=== PATIENT | female | born 1945 | race American Indian/Alaskan Native ===

== ENCOUNTER 2020-03-15 07:49 | Day surgery (SDC) | payer MEDICARE ==
[~2020-03-15 07:49] MED LIST: ceFAZolin/Water 2 GM/20 ML 2 GM/20 ML SYRINGE IV NR
[2020-03-15] MEDS ORDERED: SODIUM CHLORIDE 0.9% 1000 ML 1,000 ML ONE (08:37)
[2020-03-15 09:15] LABS: Hematocrit 30.5 % (30.3-42.9); Hemoglobin 10.5 gm/dl (10.1-14.3); Mean Corpuscular HGB Conc 34 % (30-34); Mean Corpuscular Volume 88 fl (79-97); Platelet Count 159 K/mm3 (140-440); Red Blood Count 3.48 M/mm3 (3.65-5.03); Red Cell Distribution Width 13.3 % (13.2-15.2)
[2020-03-15 09:45] LABS: Calcium 8.9 mg/dL (8.4-10.2)
[2020-03-15] MEDS ORDERED: fentaNYL 100 MCG/2 ML INJ IV NR (10:19)
[2020-03-15] MEDS ORDERED: HYDROmorphone 1 MG/1 ML INJ IV PRN (10:20)
[2020-03-15] MEDS ORDERED: ONDANSETRON 4 MG/2 ML INJ IV PRN (10:20)
[2020-03-15] MEDS ORDERED: SODIUM CHLORIDE 0.9% 1000 ML 1,000 ML IV SCH (10:30)
[2020-03-15] MEDS ORDERED: BUPIVACAINE-EPINEPHRINE/PF 0.5%-1:200,000 (30 ML) VIAL INFILTRATI ONE (10:33)
[2020-03-15] MEDS ORDERED: rifAMPin 600 MG VIAL ONE (10:41)
[2020-03-15] MEDS ORDERED: HEPARIN 10,000 UNITS/10 ML VIAL ONE (10:41)
[2020-03-15] MEDS ORDERED: SODIUM CHLORIDE 0.9% 500 ML 500 ML ONE (10:42)
[2020-03-15] MEDS ORDERED: SODIUM CHLORIDE 0.9% 250ML 250 ML ONE (10:42)
[2020-03-15] MEDS ORDERED: BUPIVACAINE/PF (0.5%) 5 MG/1 ML 30 ML VIAL INFILTRATI ONE ×3 (10:42→11:54)
[2020-03-15] MEDS ORDERED: MIDAZOLAM 2 MG/2 ML INJ IV NR (11:00)
--- NOTE | 2020-03-15 11:07 | Anesthesia Day of Surgery ---
Anesthesia Day of Surgery - Day of Surgery Patient Examined: Yes Patient H&P Reviewed: Yes Patient is NPO: Yes
--- NOTE | 2020-03-15 11:10 | Anesthesia Consultation ---
Anesthesia Consult and Med Hx Date of service: 03/15/20 - Airway Anesthetic Teeth Evaluation: Good (many missing), Dentures, Partials (lower), Edentulous (upper) ROM Head & Neck: Adequate Mental/Hyoid Distance: Adequate Mallampati Class: Class II Intubation Access Assessment: Good - Pre-Operative Health Status ASA Pre-Surgery Classification: ASA3 Proposed Anesthetic Plan: General (BLOCK; GA if needed) Nerve Block: SC - Pulmonary Hx Smoking: No Hx Asthma: No COPD: No Hx Pneumonia: No Hx Sleep Apnea: Yes (DX YEARS AGO-SNORES) - Cardiovascular System Hx Hypertension: Yes Hx Heart Attack/AMI: No Hx Cardia Arrhythmia: Yes (Hx AFIB-ablatation) Hx Pacemaker: No Hx Internal Defibrillator: No Hx Heart Murmur: No - Central Nervous System Hx Seizures: No CVA: No Hx Back Pain: Yes (Several back surgeries. Back pain limits activities) Hx Psychiatric Problems: Yes (Anxiety) - Gastrointestinal Hx Ulcer: No Hx Gastroesophageal Reflux Disease: Yes - Endocrine Hx Renal Disease: Yes (HAS ONLY ONE KIDNEY THAT FORMED) Hx End Stage Renal Disease: Yes (Not on dialysis yet. Etiology unknown) Hx Cirrhosis: No Hx Liver Disease: No Hx Non-Insulin Dependent Diabetes: No Hx Thyroid Disease: Yes Hx Hypothyroidism: Yes - Hematic Hx Anemia: Yes Hx Sickle Cell Disease: No - Other Systems Hx Alcohol Use: No Hx Substance Use: No Hx Cancer: No Hx Obesity: Yes
[2020-03-15] MEDS ORDERED: HEPARIN 1,000 UNIT in SODIUM CHLORIDE 0.9% 250ML 250 ML IR ONE (11:54)
[2020-03-15] MEDS ORDERED: SODIUM CHLORIDE 0.9% IRR 1,000 ML BOTTLE IR ONE (11:54)
[2020-03-15] MEDS ORDERED: rifAMPin 600 MG in SODIUM CHLORIDE 0.9% 50 ML IR ONE (12:25)
--- NOTE | 2020-03-15 13:41 | Short Stay Summary ---
Short Stay Documentation Date of service: 03/15/20 Narrative H&P: See H&P - History H&P: obtained from office - Allergies and Medications Current Medications: Allergies iron dextran complex [From Infed] Adverse Reaction (Verified 03/15/20 09:51) Unknown Home Medications Medication Instructions Recorded Confirmed Last Taken Type Gabapentin 600 mg PO TID 01/19/14 03/08/20 Unknown History Levothyroxine [Synthroid] 0.15 mg PO DAILY 01/19/14 03/08/20 Unknown History Oxycodone HCl/Acetaminophen 1 each PO Q4-6H PRN 01/19/14 03/08/20 Unknown History [Percocet 10-325 mg Tablet] B12 Active 5,000 mcg PO DAILY 03/01/20 03/08/20 Unknown History Gaviscon (Nf) 1 tab PO HS 03/01/20 03/08/20 Unknown History Torsemide 100 mg PO DAILY 03/01/20 03/08/20 Unknown History Vitamin D2 50,000 units PO 1XW 03/01/20 03/08/20 Unknown History Active Medications Fentanyl (Sublimaze) 100 mcg IV ONCE NR Stop: 03/15/20 23:00 Hydromorphone HCl (Dilaudid) 0.25 mg IV Q10MIN PRN PRN Reason: Pain, Moderate (4-6) Stop: 03/15/20 23:00 Hydromorphone HCl (Dilaudid) 0.5 mg IV Q10MIN PRN PRN Reason: Pain , Severe (7-10) Stop: 03/15/20 23:00 Cefazolin Sodium (Ancef/Sterile Water 2 Gm/20 Ml) 2 gm in 20 mls @ 80 mls/hr IV PREOP NR; Protocol Stop: 03/15/20 23:59 Sodium Chloride (Nacl 0.9% 1000 Ml) 1,000 mls @ 42 mls/hr IV DIRECT GIA Midazolam HCl (Versed) 2 mg IV PREOP NR Stop: 03/15/20 23:59 Ondansetron HCl (Zofran) 4 mg IV ONCE PRN PRN Reason: Nausea And Vomiting Stop: 03/15/20 23:00 - Brief post op/procedure progress note Date of procedure: 03/15/20 Pre-op diagnosis: End-Stage Renal Disease Post-op diagnosis: same Procedure: Creation of Left Brachial Artery to Axillary Vein Arteriovenous Graft with 6 mm Bovine Artegraft Anesthesia: MAC, regional, local Findings: Brachiocephalic arteriovenous fistula was initially created however there bleeding in the mid bicep requiring ligation of the fistula and creation of an arteriovenous graft. Surgeon: ZOILA MOSELEY Estimated blood loss: 50-100ml Pathology: none Condition: stable - Disposition Condition at discharge: Good Disposition: DC-01 TO HOME OR SELFCARE Short Stay Discharge Plan Activity: other (No heavy lifting with left arm for 2 weeks) Wound: open to air, keep clean and dry, other (Okay to wash the wound with soap and water but do not soak in water.) Follow up with: ZOILA MOSELEY MD [Staff Physician] - 14 Days Prescriptions: HYDROcodone/APAP 7.5-325 [[place] 7.5/325] 1 each PO Q6HR PRN #30 tablet PRN Reason: Pain
[2020-03-15] MEDS: HYDROmorphone 1 MG/1 ML INJ IV PRN ×2 (13:53→14:03)
--- NOTE | 2020-03-15 13:56 | Operative Report ---
Operative Report Operative Report: Date of procedure: 03/15/2020 Pre-operative diagnosis: End-Stage Renal Disease Post-operative diagnosis: Same Procedure(s): 1. Creation of Left Brachial Artery to Axillary Vein AV Graft with 6 mm Bovine Graft Artergraft Surgeon: Reji Agarwal MD Neuroscientist: None Anesthesia: Regional/MAC EBL: Minimal Counts: Correct Complications: None Condition: Stable Findings: Successful Creation of Left Arm AV Graft/Braciocephalic arteriovenous fistula was initially created however there was obvious bleeding in the bicep requiring ligation of the fistula. Specimen: None Indication: The patient is a 74-year-old female with a history of chronic renal insufficiency who is in need of long-term dialysis access. She was given the risk, benefits, and alternative procedures of creation of a arteriovenous access and consented to the procedure. Description of Procedure: A regional block was performed in the preoperative area prior to the patient being transported to the operating room. Once the block was completed the patient was transported to the operating room and adequate sedation was achieve d. Her left arm was then prepped and draped in normal sterile fashion. A transverse incision was then created below the antecubital crease and carried down to the cephalic vein by sharp dissection. The vein was dissected circumferentially, ligating all side branches with 3-0 silk sutures and divided the branches. The vein was then suture-ligated and divided distally, flushed with heparinized saline and clamped with the bulldog clamp. I then dissected out the brachial artery, through the same incision and dissected circumferentially and controlled with Vesseloops. At this point the patient was systemically heparinized with 3000 units of heparin IV and the artery was clamped with DeBakey clamps both proximal and distal to the planned arteriotomy. An arteriotomy was created with an 11 blade and Back scissors and then an end-to-side anastomosis was created between the cephalic vein and brachial artery using a 6-0 Prolene in running fashion. Prior to completing the anastomosis the vein and artery were both backbled and flushed with heparinized saline and then reclamped. The anastomosis was completed and then the clamps were removed allowing flow into the fistula. There was an adequate thrill however upon evaluating the upper arm there was a clear hematoma forming in the bicep indicating that there was extravasation in the upper arm. I felt I would not be able to identify where the hole in the vein was so I decided to ligate the fistula and create an arteriovenous graft. I reclamped the brachial artery and resected the cephalic vein off of the brachial artery. A second incision was created in longitudinal fashion on the medial aspect of the arm just distal to the axillary crease and carried down to the axillary vein using sharp dissection. Axillary vein was dissected out circumferentially and controlled with a vessel loop. I then used a Roselia-Wick tunneler to tunnel from the brachial artery incision to the axillary vein incision and then put an 6 mm bovine through the tunnel. I infused with heparinized saline to ensure that it was not twisted or kinked. I put the brachial artery vessel loops on tension controlling the flow and then created an arteriotomy using an 11 blade and Back scissors. I beveled the graft and created an end-to-side anastomosis using 6-0 Prolene running fashion. I clamped the graft just proximal to the anastomosis and then released the vessel loops restoring flow in the brachial artery. I placed quick clot in incision to achieve hemostasis. I cut the proximal end of the graft to the appropriate length and beveled the graft in preparation for a venous anastomosis. I controlled the axillary vein a Satinsky clamp and created a venotomy using an 11 blade and Back scissors. I created an end to side anastomosis using a 6-0 Prolene in running fashion. Prior to completing the anastomosis I flushed the graft to ensure there was no thrombus and then completed the anastamosis. I released all clamps allowing flow into the AV graft which had an excellent thrill. I packed the wound with quick clot to achieve hemostasis. I anesthetized both wounds with 0.5% Marcaine and then closed both wounds in 2 layers using 3-0 Vicryl in running fashion in the deep dermal layer and 4-0 Monocryl in running fashion the subcuticular layer. I dressed both wounds with Dermabond. The patient tolerated the procedure well all sponge needle and instrument counts were correct the patient was taken to recovery in stable condition.
[2020-03-15 14:29] VITALS: BP 115/79
--- NOTE | 2020-03-15 18:18 | Post Anesthesia Evaluation ---
- Post Anesthesia Evaluation Patient Participated: Yes Airway Patent: Yes Stable Respiratory Function: Yes Nausea/Vomiting: No Temp > 96.8F: Yes Pain Manageable: Yes Adequeate Hydration: Yes Anesthesia Complications: No Block Receding Appropriately: Yes Patient on Ventilator: No
== END 2020-03-15 16:20 | disposition home or self-care (01) ==
LOC: OR 07:49
PROVIDERS: ATTEND Surgery Vascular Surgery
DX: I12.0 Hypertensive chronic kidney disease with stage 5 chronic kidney disease or end stage renal disease (principal); E11.22 Type 2 diabetes mellitus with diabetic chronic kidney disease; N18.6 End stage renal disease; I25.10 Atherosclerotic heart disease of native coronary artery without angina pectoris; E78.5 Hyperlipidemia, unspecified; I48.91 Unspecified atrial fibrillation; G47.30 Sleep apnea, unspecified; K21.9 Gastro-esophageal reflux disease without esophagitis; E66.9 Obesity, unspecified; M19.90 Unspecified osteoarthritis, unspecified site; E89.0 Postprocedural hypothyroidism; F41.9 Anxiety disorder, unspecified; Z91.81 History of falling; Z98.891 History of uterine scar from previous surgery; Z90.49 Acquired absence of other specified parts of digestive tract; Z90.710 Acquired absence of both cervix and uterus; Z98.890 Other specified postprocedural states; Z68.38 Body mass index [BMI] 38.0-38.9, adult; Z87.442 Personal history of urinary calculi; Z79.899 Other long term (current) drug therapy; Z88.8 Allergy status to other drugs, medicaments and biological substances
CPT/HCPCS: 36415; 36830; 80048; 85027; C1757; C1768; J0690; J1170; J1644; J2250; J3010; J3490; J7030; J7040; J7050; 64450

== ENCOUNTER 2021-04-04 09:53 | Day surgery (SDC) | payer MEDICARE, OTHER ==
[2021-04-04 11:20] LABS: Calcium 9.2 mg/dL (8.4-10.2)
[2021-04-04] MEDS ORDERED: MIDAZOLAM 2 MG/2 ML INJ ONE (12:26)
[2021-04-04] MEDS ORDERED: ceFAZolin/Water 2 GM/20 ML 2 GM/20 ML SYRINGE IV ONE (12:27)
[2021-04-04] MEDS ORDERED: fentaNYL 100 MCG/2 ML INJ ONE (12:27)
[2021-04-04] MEDS ORDERED: HEPARIN/NS 5000 UNIT/500ML 1,000 ML IR ONE (12:34)
[2021-04-04] MEDS ORDERED: HEPARIN 10,000 UNITS/10 ML VIAL ONE (12:34)
[2021-04-04] MEDS ORDERED: SODIUM CHLORIDE 0.9% 250ML 0 ML ONE (13:01)
[2021-04-04] MEDS ORDERED: SODIUM CHLORIDE 0.9% 500 ML 500 ML ONE (13:02)
[2021-04-04] MEDS: LIDOCAINE (2%) 20 MG/1 ML VIAL 20 ML MDV INFILTRATI ONE ×3 (13:36→14:05)
[2021-04-04] MEDS ORDERED: hydrALAZINE 20 MG/1 ML INJ ONE (13:41)
[2021-04-04] MEDS ORDERED: hydrALAZINE 20 MG/1 ML INJ IV ONE (13:42)
[2021-04-04] MEDS ORDERED: HEPARIN 10,000 UNITS/10 ML VIAL IV ONE (13:44)
[2021-04-04] MEDS ORDERED: fentaNYL 100 MCG/2 ML INJ IV ONE (14:13)
--- NOTE | 2021-04-04 14:58 | Short Stay Summary ---
Short Stay Documentation Date of service: 04/04/21 Narrative H&P: See H&P - History H&P: obtained from office - Allergies and Medications Current Medications: Allergies iron dextran complex [From Infed] Adverse Reaction (Verified 03/15/20 09:51) Unknown Home Medications Medication Instructions Recorded Confirmed Last Taken Type Gabapentin 600 mg PO TID 01/19/14 04/04/21 04/03/21 History 600 mg Levothyroxine [Synthroid] 0.15 mg PO DAILY 01/19/14 04/04/21 04/03/21 History 1.15mg Colchicine [Colcrys] 0.3 mg PO DAILY 04/04/21 04/04/21 04/03/21 History 0.3mg Ergocalciferol [Vitamin D2] 50,000 units PO QWEEK 04/04/21 04/04/21 04/01/21 History 98196 units HYDROcodone/APAP 10-325 [[place] 1 tab PO TID 04/04/21 04/04/21 04/03/21 History 10-325 mg TAB] 1 tab Torsemide [Demadex] 100 mg PO DAILY 04/04/21 04/04/21 04/03/21 History 100 mg allopurinoL [Zyloprim] 50 mg PO Q48HR 04/04/21 04/04/21 04/03/21 History 50 mg - Brief post op/procedure progress note Date of procedure: 04/04/21 Pre-op diagnosis: Complications of Dialysis Access Post-op diagnosis: same Procedure: 1. Access Left Arm AV Graft with 7 Serbian Sheath Venous 2. Access Left Arm AV Graft with 6 Serbian Sheath Arterial 3. Diagnostic Fistulogram with Central Venogram (Using CO2) 4. Angioplasty and Stent of Left Arm AV Graft with 8 x 40 [place] Balloon, 8 x 60 Covera Stent Graft In the Venous Outflow, and a 6 x 40 [place] Balloon in the Arterial Inflow 5. Percutaneous Mechanical Thrombectomy of Left Arm AV Graft with Trerotola Device 6. Catheter in Left Brachial Artery 7. Left Upper Extremity Angiogram 8. Radiologic Supervision with Interpretation 9. Monitored Moderate Sedation (Total Anesthesia Time: 45 Minutes) Anesthesia: local, other (Monitored Moderate Sedation) Surgeon: ZOILA MOSELEY Estimated blood loss: minimal Pathology: none Condition: stable - Disposition Condition at discharge: Good Disposition: 01 HOME / SELF CARE / HOMELESS Short Stay Discharge Plan Activity: other Wound: open to air, keep clean and dry, other (Okay to shower and wash the left arm with soap and water but do not soak in water for 2 weeks.) Follow up with: ZOILA MOSELEY MD [Staff Physician] - 14 Days Forms: AVG Arteriogram D/CInstruction
--- NOTE | 2021-04-04 15:10 | Operative Report ---
Operative Report Operative Report: Date of Procedure: 04/04/2021 Pre-operative Diagnosis: Complications of Dialysis Access Post-operative Diagnosis: Same Procedure(s): 1. Access Left Arm AV Graft with 7 Dominican Sheath Venous 2. Access Left Arm AV Graft with 6 Dominican Sheath Arterial 3. Diagnostic Fistulogram with Central Venogram (Using CO2) 4. Angioplasty and Stent of Left Arm AV Graft with 8 x 40 [place] Balloon, 8 x 60 Covera Stent Graft In the Venous Outflow, and a 6 x 40 [place] Balloon in the Arterial Inflow 5. Percutaneous Mechanical Thrombectomy of Left Arm AV Graft with Trerotola Device 6. Catheter in Left Brachial Artery 7. Left Upper Extremity Angiogram 8. Radiologic Supervision with Interpretation 9. Monitored Moderate Sedation (Total Anesthesia Time: 45 Minutes) Surgeon: Reji Agarwal M.D. Assistant Refinery Operator: Barbie Anesthesia: Local/Monitored Moderate Sedation Total Anesthesia Time: 45 Minutes EBL: Minimal Contrast: 2 mL of Omnipaque Counts: Correct Complications: None Condition: Stable Specimen: None Indication: The patient is a 75-year-old female with a history of chronic renal insufficiency who was not yet on hemodialysis however she had a creation of a left brachial artery to axillary vein arteriovenous graft created in anticipation of requiring hemodialysis in the near future. She presented to the office with complaints of no longer feeling the pulse or thrill in the graft. Evaluation demonstrated that the graft was thrombosed. She is in need of a diagnostic fistulogram using CO2 to preserve her renal function. She was given the risk, benefits, alternative procedures and consented to the procedure. Angiographic Findings: The diagnostic fistulogram revealed a thrombosed graft with an occlusion of the venous outflow. The axillary vein was patent without evidence of flow-limiting stenosis. The central venous system was patent without evidence of flow- limiting stenosis. The left upper extremity angiogram revealed the brachial artery was patent without evidence of flow-limiting stenosis. The proximal radial and ulnar arteries were both patent without evidence of distal emboli there was an occlusion of the arterial anastomosis. After intervention the arterial anastomosis was patent with less than 10% residual stenosis and minimal residual thrombus noted. There was no evidence of distal emboli in the radial or ulnar arteries. The venous anastomosis was patent with less than 10% residual stenosis. Description of Procedure: The patient was brought to the Deputy Editor In Chief and laid in supine position. After a timeout was performed her left arm was prepped and draped in normal sterile fashion. Lidocaine was used to anesthetize the skin and soft tissue overlying the graft, near the arterial inflow, and a 21-gauge micropuncture needle was used access the graft towards the venous outflow. A 0.018 micropuncture wire was advanced to the graft and after removing the needle a 7 Dominican sheath was placed by Seldinger technique. A diagnostic fistulogram was performed using CO2 with the previously described findings. I was able to advance a vertebral catheter and a 0.018 V18 wire across the occluded anastomosis performed the remainder of the fistulogram including the central venogram with the previously to graft findings. At this point I systemically heparinized the patient with 5000 units of heparin IV. I advanced a 0.035 Bentson wire into the central venous system and performed angioplasty of the venous anastomosis using an 8 x 40 [place] Balloon which resulted in approximately 60% residual stenosis. I was able to aspirate some thrombus from the graft however I used a Trerotola device and was able to macerate the remaining thrombus and aspirated through the 7 Dominican sheath. I readvanced the Bentson wire to the central venous system and then remove the 7 Dominican sheath and advanced an 8 x 60 Covera stent graft, bareback, across the anastomosis and deployed it. I reinserted the 7 Dominican sheath and then postdilated the stent graft which resulted in less than 10% residual stenosis across the venous anastomosis. I then anesthetized skin and soft tissue overlying the graft near the venous outflow and used a 21-gauge micropuncture needle to access the graft towards the arterial inflow. I advanced the 0.018 micropuncture wire to the graft and then after removing the needle placed a 6 Dominican sheath by Seldinger technique. I used the vertebral catheter and V 18 wire to traverse the occluded arterial anastomosis and advanced the catheter and wire into the mid brachial artery. I performed a diagnostic angiogram using CO2 with the previously described findings. I used a 6 x 40 [place] Balloon initially as a La to remove thrombus from the hank rial anastomosis and then performed angioplasty of the anastomosis with a result of less than 10% residual stenosis. At this point the graft developed a thrill. I advanced the vertebral catheter back into the brachial artery performed a final angiogram using a total of 2 mL of contrast. This demonstrated that the arterial anastomosis was patent with less than 10% residual stenosis, no evidence of distal emboli in the radial or ulnar arteries, minimal residual thrombus within the graft, and brisk flow of contrast throughout the outflow. At this point all catheters and wires were removed and 4-0 chromic in pursestring fashion was used to close each entry site after removing the sheaths. Dermabond was then used to dress the sites and the patient was transported to the recovery area in stable condition.
[2021-04-04 16:06] VITALS: BP 163/70
== END 2021-04-04 16:44 | disposition home or self-care (01) ==
LOC: CATHLABREC 09:53
PROVIDERS: ATTEND Surgery Vascular Surgery
DX: T82.868A Thrombosis due to vascular prosthetic devices, implants and grafts, initial encounter (principal); N18.4 Chronic kidney disease, stage 4 (severe); Z79.899 Other long term (current) drug therapy; Z88.8 Allergy status to other drugs, medicaments and biological substances; Z98.890 Other specified postprocedural states; Y83.8 Other surgical procedures as the cause of abnormal reaction of the patient, or of later complication, without mention of misadventure at the time of the procedure
CPT/HCPCS: 36415; 36906; 80048; 99156; 99157; C1725; C1757; C1769; C1874; C1894; J0360; J0690; J1644; J2250; J3010; J7040; J7050; Q9967